=== PATIENT | female | born 1940 | race Caucasian/White ===

== ENCOUNTER → 2017-05-15 | Outpatient (CLI) | payer MEDICARE | END | disposition home or self-care (01) | LOC: CVU 14:19 | PROVIDERS: ATTEND Internal Medicine Cardiovascular Disease | DX: I70.203 Unspecified atherosclerosis of native arteries of extremities, bilateral legs (principal); I70.0 Atherosclerosis of aorta; E78.5 Hyperlipidemia, unspecified; Z71.6 Tobacco abuse counseling | CPT/HCPCS: 93306; 93978 ==

== ENCOUNTER → 2017-08-21 | Outpatient (CLI) | payer MEDICARE | END | disposition home or self-care (01) | LOC: CFH 11:07 | PROVIDERS: ATTEND Family Medicine | DX: M81.0 Age-related osteoporosis without current pathological fracture (principal); N95.9 Unspecified menopausal and perimenopausal disorder | CPT/HCPCS: 77080 ==

== ENCOUNTER → 2018-09-10 | Outpatient (CLI) | payer MEDICARE | END | disposition home or self-care (01) | LOC: CFH 11:44 | PROVIDERS: ATTEND Otolaryngology | DX: J34.2 Deviated nasal septum (principal); J31.0 Chronic rhinitis | CPT/HCPCS: 70486 ==

== ENCOUNTER 2018-09-20 14:36 | Emergency (ER) | payer MEDICARE ==
[~2018-09-20] VITALS: Ht 160 cm; Wt 45.6 kg
[2018-09-20] MEDS ORDERED: LIDOCAINE-MPF 1%, 5ML ONE (15:17)
[2018-09-20 15:27] LABS: BASOPHILS # (AUTO) 0.01 x10^3/uL (0-0.1); BASOPHILS % (AUTO) 0 % (0-1); EOSINOPHILS # (AUTO) 0.13 x10^3/uL (0-0.4); EOSINOPHILS % (AUTO) 1 % (1-7); LYMPHOCYTES # (AUTO) 0.74 x10^3/uL (1-3.4); LYMPHOCYTES % (AUTO) 7 % (22-44); MD NO; MEAN CORPUSCULAR HGB CONC 34.1 g/dL (32.4-35.8); MEAN CORPUSCULAR VOLUME 99.5 fL (80-100); MEAN PLATELET VOLUME 8.7 fL (7.4-10.4); MONOCYTES # (AUTO) 0.77 x10^3/uL (0.2-0.8); MONOCYTES % (AUTO) 8 % (2-9); NEUTROPHILS # (AUTO) 8.63 x10^3/uL (1.8-6.8); NEUTROPHILS % (AUTO) 84 % (42-75); PLATELET COUNT 262 x10^3/uL (130-400); RED BLOOD COUNT 4.38 x10^6/uL (3.82-5.3); RED CELL DISTRIBUTION WIDTH 13.6 % (9.6-15.2)
--- NOTE | 2018-09-20 15:29 | NUR ---
PT PRESNTED TO ED WITH SHORTNESS OF BREATH AND RIGHT RIB PAIN SINCE THURSDAY. PT STATED SHE FELL AGAINST A CHAIR ON THURSDAY. PT TACHYPNEIC AND SATS 88%. PT PLACED ON OXYGEN AT 3 LTERS NC AND SATS 97%. IV STARTED AND MD AT BEDSIDE. PT WILL GO TO IR FOR A CHEST TUBE PLACEMENT. PT WICH CREPITIS ON LEFT RIB AREA WITH PALPATION. PT PLACED ON BP AND CONT. PULSE OXIMETER. PT THEN TAKEN TO RADIOLOGY FOR INTERVENTIONAL PLACEMENT OF CHEST TUBE.
[2018-09-20] MEDS ORDERED: MORPHINE SULFATE 4 MG/ML, 1ML IVPush PRN (15:30)
[2018-09-20] MEDS ORDERED: SODIUM CHLORIDE FLUSH 10ML SYR IVF ONE (15:30)
[2018-09-20] MEDS ORDERED: ONDANSETRON 2MG/ML, 2ML IVP ONE (15:30)
[2018-09-20] MEDS ORDERED: FENTANYL PF 100 MCG/2ML ONE (15:35)
[2018-09-20] MEDS ORDERED: NALOXONE 1 MG/ML, 2ML ONE (15:35)
--- NOTE | 2018-09-20 15:35 | NUR ---
PT TAKEN TO IR FOR CHEST TUBE PLACEMENT
[2018-09-20 15:37] LABS: ALBUMIN 4.2 g/dL (3.4-5.0); ANION GAP 11 mmol/L (5-15); CALCIUM 8.8 mg/dL (8.5-10.1); CHLORIDE 88 mmol/L (98-107); CREATININE 1.04 mg/dL (0.55-1.02)
[2018-09-20 15:54] LABS: INTERNATIONAL NORMALIZED RATIO 0.95 (0.93-1.1)
[2018-09-20 16:20] VITALS: BP 131/81
--- NOTE | 2018-09-20 16:21 | NUR ---
ON RETURN TO FLOOR FROM IR, ASSUMED CARE. CHEST TUBE PLACED TO LOW SUCTION. PT STATES PAIN IMPROVED AT THIS TIME. PT HAD A MECHANICAL FALL, LANDING ON CHAIR, THURSDAY. PROVIDER EXAMINING PT.
[2018-09-20] MEDS ORDERED: ASPI-496 PO (16:26)
[2018-09-20] MEDS ORDERED: CHOL2000 PO (16:26)
--- NOTE | 2018-09-20 16:54 | NUR ---
PT IN NO DISTRESS, TALKING TO FAMILY ON PHONE. REPORT GIVEN TO TRAVIS RODRIGUEZ
--- NOTE | 2018-09-20 17:17 | NUR ---
REPORT TO [facility]. PT LEFT VIA GURNEY IN AMBULANCE TO [facility] ER
== END 2018-09-20 17:25 ==
LOC: ED 16:01
DX: S27.0XXA Traumatic pneumothorax, initial encounter (principal); S22.42XA Multiple fractures of ribs, left side, initial encounter for closed fracture; I10 Essential (primary) hypertension; F17.200 Nicotine dependence, unspecified, uncomplicated; W18.30XA Fall on same level, unspecified, initial encounter; Y93.89 Activity, other specified; Y92.009 Unspecified place in unspecified non-institutional (private) residence as the place of occurrence of the external cause; Y99.8 Other external cause status
CPT/HCPCS: 32557; 36415; 71101; 80048; 82040; 85025; 85610; 85730; 99285; C1729; C1769; J3010; 99284; J2310

== ENCOUNTER → 2018-10-07 | Outpatient (CLI) | payer MEDICARE ==
[~2018-10-07] MED LIST: ASPI-496 PO; CHOL2000 PO
== END | disposition home or self-care (01) ==
LOC: CFH 10:08
PROVIDERS: ATTEND Nurse Practitioner Family
DX: S22.42XD Multiple fractures of ribs, left side, subsequent encounter for fracture with routine healing (principal); J93.9 Pneumothorax, unspecified; X58.XXXD Exposure to other specified factors, subsequent encounter
CPT/HCPCS: 71046